=== PATIENT | male | born 1940 | race Two or more races ===

== ENCOUNTER → 2017-04-29 | Outpatient (CLI) | payer OTHER ==
[~2017-04-29] MED LIST: GLIM1TAB2; GLIP-115; HYDR-2598; LEVO50TA7; LORAZEPAM; METFORMIN 500MG TABLETS; NAPR500T31; QUIN20TA35; TIMO0.5S32; TRAV0.00
[2017-04-29 08:34] LABS: Basophils # (auto) 0 uL; Basophils % (auto) 0.5 % (0.0-2.0); Eosinophils # (auto) 0.4 uL; Eosinophils % (auto) 5.3 % (0.0-7.0); Hematocrit 46.9 % (41.0-53.0); Hemoglobin 15.7 g/dL (13.5-17.5); Lymphocytes # (auto) 2.3 uL; Lymphocytes % (auto) 29.8 % (10.0-50.0); Mean Corpuscular Hemoglobin 29.6 pg (28.0-32.0); Mean Corpuscular Hgb Conc. 33.4 g/dL (32.0-36.0); Mean Corpuscular Volume 88.7 fL (80.0-100.0); Monocytes # (auto) 0.5 uL; Monocytes % (auto) 7.1 % (0.0-12.0); Neutrophils # (auto) 4.3 uL; Neutrophils % (auto) 57.3 % (37.0-80.0); Nucleated Red Blood Cells % 0.1 %; Platelet Count (auto) 182 10^3/uL (140-450); Red Blood Cells 5.29 10^6/uL (4.5-5.90); Red Cell Distribution Width 12.7 % (11.8-14.3); White Blood Cell 7.6 10^3/uL (4.4-10.8)
[2017-04-29 08:46] LABS: Albumin 3.5 g/dL (3.4-5.0); BUN/Creatinine Ratio 23.9; Bilirubin, Total 0.9 mg/dL (0.2-1.0); Calcium 8.7 mg/dL (8.5-10.1); Potassium 3.8 mmol/L (3.5-5.1); Total Protein 8.5 g/dL (6.4-8.2)
[2017-04-29 08:53] LABS: Urine Bacteria NONE SEEN /hpf (None Seen); Urine Blood Negative /uL (Negative); Urine Specific Gravity 1.012 (1.001-1.035); Urine WBC <1 /hpf (0 - 3)
== END | disposition home or self-care (01) ==
LOC: LAB 07:48
PROVIDERS: ATTEND Family Medicine
DX: I10 Essential (primary) hypertension (principal); E11.42 Type 2 diabetes mellitus with diabetic polyneuropathy; E78.5 Hyperlipidemia, unspecified
CPT/HCPCS: 36415; 80053; 80061; 81001; 82043; 83036; 84443; 85025

== ENCOUNTER → 2017-10-30 | Outpatient (CLI) | payer OTHER ==
[2017-10-30 07:56] LABS: Basophils # (auto) 0 uL; Basophils % (auto) 0.5 % (0.0-2.0); Eosinophils # (auto) 0.4 uL; Eosinophils % (auto) 4.7 % (0.0-7.0); Hematocrit 45.9 % (41.0-53.0); Hemoglobin 15.4 g/dL (13.5-17.5); Lymphocytes # (auto) 2.8 uL; Lymphocytes % (auto) 33.8 % (10.0-50.0); Mean Corpuscular Hemoglobin 30.3 pg (28.0-32.0); Mean Corpuscular Hgb Conc. 33.6 g/dL (32.0-36.0); Mean Corpuscular Volume 90.3 fL (80.0-100.0); Monocytes # (auto) 0.5 uL; Monocytes % (auto) 6.1 % (0.0-12.0); Neutrophils # (auto) 4.5 uL; Neutrophils % (auto) 54.9 % (37.0-80.0); Nucleated Red Blood Cells % 0.1 %; Platelet Count (auto) 161 10^3/uL (140-450); Red Blood Cells 5.08 10^6/uL (4.5-5.90); Red Cell Distribution Width 13.4 % (11.8-14.3); White Blood Cell 8.3 10^3/uL (4.4-10.8)
[2017-10-30 08:00] LABS: Urine Bacteria NONE SEEN /hpf (None Seen); Urine Blood 1+ /uL (Negative); Urine Specific Gravity 1.019 (1.001-1.035); Urine WBC 1 /hpf (0 - 3)
[2017-10-30 08:40] LABS: BUN/Creatinine Ratio 17.5; Potassium 3.7 mmol/L (3.5-5.1)
[2017-10-30 08:41] LABS: Albumin 3.4 g/dL (3.4-5.0); Bilirubin, Total 1.4 mg/dL (0.2-1.0); Calcium 8.7 mg/dL (8.5-10.1)
== END | disposition home or self-care (01) ==
LOC: LAB 07:26
PROVIDERS: ATTEND Nurse Practitioner
DX: E78.5 Hyperlipidemia, unspecified (principal); E11.42 Type 2 diabetes mellitus with diabetic polyneuropathy; I10 Essential (primary) hypertension; Z79.899 Other long term (current) drug therapy
CPT/HCPCS: 36415; 80053; 80061; 81001; 82043; 82306; 83036; 84153; 84443; 85025

== ENCOUNTER → 2018-05-15 | Outpatient (CLI) | payer OTHER ==
[2018-05-15 08:12] LABS: Basophils # (auto) 0 uL; Basophils % (auto) 0.4 % (0.0-2.0); Eosinophils # (auto) 0.3 uL; Eosinophils % (auto) 4.7 % (0.0-7.0); Hematocrit 46.9 % (41.0-53.0); Hemoglobin 15.6 g/dL (13.5-17.5); Lymphocytes # (auto) 2.2 uL; Lymphocytes % (auto) 32.5 % (10.0-50.0); Mean Corpuscular Hemoglobin 29.7 pg (28.0-32.0); Mean Corpuscular Hgb Conc. 33.3 g/dL (32.0-36.0); Mean Corpuscular Volume 89.2 fL (80.0-100.0); Monocytes # (auto) 0.5 uL; Monocytes % (auto) 7.7 % (0.0-12.0); Neutrophils # (auto) 3.7 uL; Neutrophils % (auto) 54.7 % (37.0-80.0); Platelet Count (auto) 160 10^3/uL (140-450); Red Blood Cells 5.26 10^6/uL (4.5-5.90); Red Cell Distribution Width 13.7 % (11.8-14.3); White Blood Cell 6.8 10^3/uL (4.4-10.8)
[2018-05-15 08:59] LABS: Albumin 3.4 g/dL (3.4-5.0); Calcium 9.1 mg/dL (8.5-10.1); Potassium 4.1 mmol/L (3.5-5.1)
[2018-05-15 09:05] LABS: BUN/Creatinine Ratio 17.5; Bilirubin, Total 0.8 mg/dL (0.2-1.0); Total Protein 8.4 g/dL (6.4-8.2)
== END | disposition home or self-care (01) ==
LOC: LAB 07:33
PROVIDERS: ATTEND Nurse Practitioner
DX: E11.9 Type 2 diabetes mellitus without complications (principal); E78.49 Other hyperlipidemia
CPT/HCPCS: 36415; 80053; 80061; 83036; 84443; 85025

== ENCOUNTER → 2018-06-27 | Outpatient (CLI) | payer OTHER ==
[2018-06-27 08:39] LABS: Urine Bacteria NONE SEEN /hpf (None Seen); Urine Blood Negative /uL (Negative); Urine Specific Gravity 1.024 (1.001-1.035); Urine WBC 2 /hpf (0 - 3)
[2018-06-27 08:41] LABS: Basophils # (auto) 0 uL; Basophils % (auto) 0.6 % (0.0-2.0); Eosinophils # (auto) 0.4 uL; Eosinophils % (auto) 5.8 % (0.0-7.0); Hematocrit 44.8 % (41.0-53.0); Hemoglobin 14.9 g/dL (13.5-17.5); Lymphocytes % (auto) 30.5 % (10.0-50.0); Mean Corpuscular Hemoglobin 29.3 pg (28.0-32.0); Mean Corpuscular Hgb Conc. 33.3 g/dL (32.0-36.0); Mean Corpuscular Volume 88.1 fL (80.0-100.0); Monocytes # (auto) 0.5 uL; Monocytes % (auto) 7.3 % (0.0-12.0); Neutrophils # (auto) 3.6 uL; Neutrophils % (auto) 55.8 % (37.0-80.0); Platelet Count (auto) 169 10^3/uL (140-450); Red Blood Cells 5.09 10^6/uL (4.5-5.90); Red Cell Distribution Width 13.2 % (11.8-14.3); White Blood Cell 6.5 10^3/uL (4.4-10.8)
[2018-06-27 09:00] LABS: Albumin 3.5 g/dL (3.4-5.0); Calcium 8.7 mg/dL (8.5-10.1); Potassium 3.7 mmol/L (3.5-5.1)
[2018-06-27 09:06] LABS: BUN/Creatinine Ratio 19.6; Total Protein 8.2 g/dL (6.4-8.2)
== END | disposition home or self-care (01) ==
LOC: LAB 07:30
PROVIDERS: ATTEND Nurse Practitioner
DX: E11.9 Type 2 diabetes mellitus without complications (principal); E78.5 Hyperlipidemia, unspecified
CPT/HCPCS: 36415; 80053; 80061; 81001; 82043; 83036; 85025

== ENCOUNTER → 2018-11-24 | Outpatient (CLI) | payer OTHER, MEDICARE ==
[~2018-11-24] MED LIST changes: -GLIP-115; +GLIP5TAB12
[2018-11-24 08:05] LABS: Basophils # (auto) 0.1 uL; Basophils % (auto) 0.9 % (0.0-2.0); Eosinophils # (auto) 0.3 uL; Eosinophils % (auto) 4.5 % (0.0-7.0); Hematocrit 47.2 % (41.0-53.0); Hemoglobin 15.7 g/dL (13.5-17.5); Lymphocytes # (auto) 2.3 uL; Lymphocytes % (auto) 36.8 % (10.0-50.0); Mean Corpuscular Hemoglobin 29.7 pg (28.0-32.0); Mean Corpuscular Hgb Conc. 33.2 g/dL (32.0-36.0); Mean Corpuscular Volume 89.4 fL (80.0-100.0); Monocytes # (auto) 0.4 uL; Neutrophils # (auto) 3.3 uL; Neutrophils % (auto) 51.8 % (37.0-80.0); Nucleated Red Blood Cells % 0.1 %; Platelet Count (auto) 152 10^3/uL (140-450); Red Blood Cells 5.28 10^6/uL (4.5-5.90); Red Cell Distribution Width 13.7 % (11.8-14.3); White Blood Cell 6.3 10^3/uL (4.4-10.8)
[2018-11-24 08:19] LABS: Urine Bacteria NONE SEEN /hpf (None Seen); Urine Blood Negative /uL (Negative); Urine Specific Gravity 1.011 (1.001-1.035); Urine WBC <1 /hpf (0 - 3)
[2018-11-24 08:30] LABS: Albumin 3.5 g/dL (3.4-5.0); BUN/Creatinine Ratio 19.1
[2018-11-24 08:36] LABS: Bilirubin, Total 1.1 mg/dL (0.2-1.0); Total Protein 7.9 g/dL (6.4-8.2)
== END | disposition home or self-care (01) ==
LOC: LAB 07:19
PROVIDERS: ATTEND Nurse Practitioner
DX: E11.9 Type 2 diabetes mellitus without complications (principal); E78.5 Hyperlipidemia, unspecified
CPT/HCPCS: 36415; 80053; 80061; 81001; 82043; 83036; 85025

== ENCOUNTER → 2019-03-09 | Outpatient (CLI) | payer OTHER, MEDICARE ==
[~2019-03-09] MED LIST changes: -GLIM1TAB2; +GLIM1TAB3
[2019-03-09 09:25] LABS: Basophils # (auto) 0 uL; Basophils % (auto) 0.6 % (0.0-2.0); Eosinophils # (auto) 0.7 uL; Eosinophils % (auto) 10.8 % (0.0-7.0); Hematocrit 46.9 % (41.0-53.0); Hemoglobin 15.7 g/dL (13.5-17.5); Lymphocytes % (auto) 28.8 % (10.0-50.0); Mean Corpuscular Hgb Conc. 33.5 g/dL (32.0-36.0); Mean Corpuscular Volume 89.5 fL (80.0-100.0); Monocytes # (auto) 0.5 uL; Neutrophils # (auto) 3.5 uL; Neutrophils % (auto) 51.8 % (37.0-80.0); Platelet Count (auto) 141 10^3/uL (140-450); Red Blood Cells 5.24 10^6/uL (4.5-5.90); Red Cell Distribution Width 13.6 % (11.8-14.3); White Blood Cell 6.8 10^3/uL (4.4-10.8)
[2019-03-09 09:50] LABS: Urine Bacteria FEW /hpf (None Seen); Urine Blood Negative /uL (Negative); Urine Specific Gravity 1.012 (1.001-1.035); Urine WBC <1 /hpf (0 - 3)
[2019-03-09 10:05] LABS: Potassium 4.4 mmol/L (3.5-5.1)
[2019-03-09 10:15] LABS: Albumin 3.5 g/dL (3.4-5.0); BUN/Creatinine Ratio 17.3; Calcium 9.2 mg/dL (8.5-10.1); Total Protein 7.9 g/dL (6.4-8.2)
== END | disposition home or self-care (01) ==
LOC: LAB 08:22
PROVIDERS: ATTEND Nurse Practitioner
DX: E78.5 Hyperlipidemia, unspecified (principal); E11.9 Type 2 diabetes mellitus without complications
CPT/HCPCS: 36415; 80053; 80061; 81001; 82043; 83036; 84443; 85025

== ENCOUNTER → 2019-06-23 | Outpatient (CLI) | payer OTHER ==
[2019-06-23 08:57] LABS: Basophils # (auto) 0 10 ^3/uL (0-0.2); Basophils % (auto) 0.7 % (0.0-2.0); Eosinophils # (auto) 0.4 10 ^3/uL (0-0.8); Hematocrit 45.6 % (41.0-53.0); Hemoglobin 14.9 g/dL (13.5-17.5); Lymphocytes # (auto) 1.6 10 ^3/uL (0.4-5.4); Lymphocytes % (auto) 22.3 % (10.0-50.0); Mean Corpuscular Hemoglobin 29.3 pg (28.0-32.0); Mean Corpuscular Hgb Conc. 32.6 g/dL (32.0-36.0); Mean Corpuscular Volume 89.9 fL (80.0-100.0); Monocytes # (auto) 0.6 10 ^3/uL (0-1.3); Monocytes % (auto) 7.8 % (0.0-12.0); Neutrophils # (auto) 4.5 10 ^3/uL (1.6-8.6); Neutrophils % (auto) 64.2 % (37.0-80.0); Nucleated Red Blood Cells % 0.1 %; Platelet Count (auto) 137 10^3/uL (140-450); Red Blood Cells 5.07 10^6/uL (4.5-5.90); Red Cell Distribution Width 13.6 % (11.8-14.3); White Blood Cell 7.1 10^3/uL (4.4-10.8)
[2019-06-23 09:13] LABS: Albumin 3.4 g/dL (3.4-5.0); Calcium 8.7 mg/dL (8.5-10.1); Potassium 4.1 mmol/L (3.5-5.1)
[2019-06-23 09:19] LABS: BUN/Creatinine Ratio 19.6; Bilirubin, Total 1.2 mg/dL (0.2-1.0); Total Protein 7.9 g/dL (6.4-8.2)
== END | disposition home or self-care (01) ==
LOC: LAB 08:33
PROVIDERS: ATTEND Nurse Practitioner
DX: E78.5 Hyperlipidemia, unspecified (principal); E11.9 Type 2 diabetes mellitus without complications
CPT/HCPCS: 36415; 80053; 80061; 83036; 85025

== ENCOUNTER → 2019-12-23 | Outpatient (CLI) | payer OTHER ==
[~2019-12-23] MED LIST changes: +GLIM-5; -GLIM1TAB3
[2019-12-23 10:05] LABS: Albumin 3.7 g/dL (3.4-5.0); Calcium 8.8 mg/dL (8.5-10.1); Potassium 3.9 mmol/L (3.5-5.1)
[2019-12-23 10:13] LABS: BUN/Creatinine Ratio 19.8; Bilirubin, Total 1.1 mg/dL (0.2-1.0); Total Protein 7.6 g/dL (6.4-8.2)
[2019-12-23 10:21] LABS: Basophils # (auto) 0 10 ^3/uL (0-0.2); Basophils % (auto) 0.6 % (0.0-2.0); Eosinophils # (auto) 0.4 10 ^3/uL (0-0.8); Eosinophils % (auto) 6.6 % (0.0-7.0); Hematocrit 42.2 % (41.0-53.0); Hemoglobin 14.2 g/dL (13.5-17.5); Lymphocytes # (auto) 1.9 10 ^3/uL (0.4-5.4); Lymphocytes % (auto) 31.2 % (10.0-50.0); Mean Corpuscular Hemoglobin 29.7 pg (28.0-32.0); Mean Corpuscular Hgb Conc. 33.7 g/dL (32.0-36.0); Mean Corpuscular Volume 88.3 fL (80.0-100.0); Monocytes # (auto) 0.5 10 ^3/uL (0-1.3); Monocytes % (auto) 8.3 % (0.0-12.0); Neutrophils # (auto) 3.3 10 ^3/uL (1.6-8.6); Neutrophils % (auto) 53.3 % (37.0-80.0); Nucleated Red Blood Cells % 0.1 %; Platelet Count (auto) 160 10^3/uL (140-450); Red Blood Cells 4.77 10^6/uL (4.5-5.90); Red Cell Distribution Width 13.3 % (11.8-14.3); White Blood Cell 6.1 10^3/uL (4.4-10.8)
== END | disposition home or self-care (01) ==
LOC: LAB 09:16
PROVIDERS: ATTEND Student in an Organized Health Care Education/Training Program
DX: I10 Essential (primary) hypertension (principal); E11.42 Type 2 diabetes mellitus with diabetic polyneuropathy; E03.8 Other specified hypothyroidism; E78.5 Hyperlipidemia, unspecified
CPT/HCPCS: 36415; 80053; 80061; 82043; 83036; 84443; 85025

== ENCOUNTER 2020-03-16 09:20 | Inpatient (IN) | payer OTHER ==
[~2020-03-16] VITALS: Ht 165.1 cm; Wt 80.5 kg
[2020-03-16] MEDS: BUDESONIDE (INHALATION) 180 MCG IH IN SCH (06:34)
[2020-03-16 10:11] LABS: Basophils # (auto) 0 10 ^3/uL (0-0.2); Basophils % (auto) 0.1 % (0.0-2.0); Eosinophils # (auto) 0 10 ^3/uL (0-0.8); Eosinophils % (auto) 0.6 % (0.0-7.0); Hematocrit 45.5 % (41.0-53.0); Hemoglobin 15.5 g/dL (13.5-17.5); Lymphocytes % (auto) 14.7 % (10.0-50.0); Mean Corpuscular Hemoglobin 30.3 pg (28.0-32.0); Mean Corpuscular Hgb Conc. 34.1 g/dL (32.0-36.0); Mean Corpuscular Volume 88.9 fL (80.0-100.0); Monocytes # (auto) 0.5 10 ^3/uL (0-1.3); Monocytes % (auto) 7.5 % (0.0-12.0); Neutrophils # (auto) 5.5 10 ^3/uL (1.6-8.6); Neutrophils % (auto) 77.1 % (37.0-80.0); Nucleated Red Blood Cells % 0.1 %; Platelet Count (auto) 135 10^3/uL (140-450); Red Blood Cells 5.12 10^6/uL (4.5-5.90); Red Cell Distribution Width 13.1 % (11.8-14.3); White Blood Cell 7.2 10^3/uL (4.4-10.8)
[2020-03-16] MEDS ORDERED: DexAMETHasone SOD PHOS 10MG/1ML VIAL INJ IV ONE (10:30)
[2020-03-16] MEDS ORDERED: DOXYCYCLINE 100MG/250ML 250 ML IV ONE (10:30)
[2020-03-16 10:31] LABS: Albumin 2.8 g/dL (3.4-5.0); Anion Gap 6 (5-15); Blood Urea Nitrogen 17 mg/dL (7-18); Calcium 8.4 mg/dL (8.5-10.1); Carbon Dioxide 24 mmol/L (21-32); Chloride 103 mmol/L (98-107); Glucose 193 mg/dL (74-106); Potassium 3.6 mmol/L (3.5-5.1); Sodium 133 mmol/L (136-145)
[2020-03-16 10:35] LABS: INR 1.04 (0.9-1.15); Partial Thromboplastin Time 29.2 sec (23.0-31.2)
[2020-03-16 10:38] LABS: Alanine Aminotransferase 42 U/L (16-61); Alkaline Phosphatase 86 U/L (45-117); Aspartate Aminotransferase 47 U/L (15-37); BUN/Creatinine Ratio 13.6; Bilirubin, Total 1.1 mg/dL (0.2-1.0); GFR African American 72 mL/min; GFR Non-African American 59 mL/min; Total Protein 8.1 g/dL (6.4-8.2)
[2020-03-16 10:58] LABS: Lactic Acid w/Reflex 2.9 mmol/L (0.4-2.0)
[2020-03-16 13:09] LABS: Urine Bacteria NONE SEEN /hpf (None Seen); Urine Blood Negative /uL (Negative); Urine Mucus FEW (None Seen); Urine Specific Gravity 1.014 (1.001-1.035); Urine WBC 6 /hpf (0 - 3)
[2020-03-16] MEDS ORDERED: NITROGLYCERIN 0.4 MG SL TAB SL PRN (14:30)
[2020-03-16] MEDS ORDERED: MORPHINE SULF INJ 2 MG/ML SYRINGE 1ML IV PRN (14:30)
[2020-03-16] MEDS ORDERED: ACETAMINOPHEN 500 MG TAB PO PRN (14:30)
[2020-03-16] MEDS ORDERED: HYDROcodone-ACET 5/325MG TAB PO PRN (14:30)
[2020-03-16] MEDS ORDERED: REMDESIVIR PER PHARMACY 0 ML IV SCH (14:30)
[2020-03-16] MEDS ORDERED: DEXTROSE (50%) 50ML SYRG IV PRN (14:30)
[2020-03-16] MEDS ORDERED: LEVO112T4 PO (16:59)
[2020-03-16] MEDS ORDERED: METF-371 PO (16:59)
[2020-03-16] MEDS ORDERED: AML5T PO (17:00)
[2020-03-16] MEDS ORDERED: REMDESIVIR 200 MG in NS 210ml LOADING DOSE ADULT IV ONE (17:00)
[2020-03-16] MEDS ORDERED: SIMV10TA84 PO (17:00)
[2020-03-16] MEDS ORDERED: LISI-646 PO (17:00)
[2020-03-16] MEDS ORDERED: SITA25TA3 PO (17:00)
[2020-03-16] MEDS ORDERED: DICL50TA4 PO (17:01)
[2020-03-16] MEDS ORDERED: GABA100C9 PO (17:01)
[2020-03-16] MEDS: ACCU-CHEK COMFORT CURVE STRIP VI SCH (17:48)
[2020-03-16] MEDS: InsuLIN REG 1unit/0.01ml Soln (100units/ml) SC SCH (17:50)
[2020-03-16 17:58] LABS: CRP High Sensitivity 14.8 mg/dL (< 0.3)
[2020-03-16] MEDS: ENOXAPARIN SOD 40 MG/0.4 ML SYRINGE SC SCH (22:00)
[2020-03-16 23:24] VITALS: BP 139/77
[2020-03-17] MEDS: ACCU-CHEK COMFORT CURVE STRIP VI SCH ×5 (00:16→22:19)
[2020-03-17] MEDS: InsuLIN REG 1unit/0.01ml Soln (100units/ml) SC SCH ×5 (00:17→22:25)
[2020-03-17 06:45] LABS: Basophils # (auto) 0 10 ^3/uL (0-0.2); Basophils % (auto) 0.1 % (0.0-2.0); Eosinophils # (auto) 0 10 ^3/uL (0-0.8); Hematocrit 44.5 % (41.0-53.0); Hemoglobin 15.4 g/dL (13.5-17.5); Lymphocytes # (auto) 0.6 10 ^3/uL (0.4-5.4); Lymphocytes % (auto) 7.6 % (10.0-50.0); Mean Corpuscular Hemoglobin 30.7 pg (28.0-32.0); Mean Corpuscular Hgb Conc. 34.6 g/dL (32.0-36.0); Mean Corpuscular Volume 88.9 fL (80.0-100.0); Monocytes # (auto) 0.6 10 ^3/uL (0-1.3); Monocytes % (auto) 7.4 % (0.0-12.0); Neutrophils # (auto) 6.9 10 ^3/uL (1.6-8.6); Neutrophils % (auto) 84.9 % (37.0-80.0); Nucleated Red Blood Cells % 0.1 %; Platelet Count (auto) 140 10^3/uL (140-450); Red Blood Cells 5.01 10^6/uL (4.5-5.90); Red Cell Distribution Width 13.2 % (11.8-14.3); White Blood Cell 8.1 10^3/uL (4.4-10.8)
[2020-03-17 08:00] VITALS: BP 136/68
[2020-03-17] MEDS: cefTRIAXone 1GM/50ML D5W 50 ML IV SCH (08:49)
[2020-03-17] MEDS: FAMOTIDINE 20 MG TAB PO SCH (08:50)
[2020-03-17] MEDS: ZINC SULFATE 220mg CAP or TAB PO SCH (08:50)
[2020-03-17] MEDS: CHOLECALCIFEROL (VITD3) 2,000 UNIT CAP PO SCH (08:50)
[2020-03-17] MEDS: ASCORBIC ACID 1,000 MG TAB PO SCH (08:50)
[2020-03-17] MEDS: ENOXAPARIN SOD 40 MG/0.4 ML SYRINGE SC SCH ×2 (08:51→21:15)
[2020-03-17] MEDS: BUDESONIDE (INHALATION) 180 MCG IH IN SCH ×2 (09:17→22:07)
[2020-03-17] MEDS ORDERED: AZITHROMYCIN 500MG/ 250ML 250 ML IV SCH (10:00)
[2020-03-17] MEDS ORDERED: FUROSEMIDE 40 MG/4 ML VIAL IV ONE (10:30)
[2020-03-17] MEDS: AZITHROMYCIN 500MG/ 250ML 250 ML IV SCH (10:35)
[2020-03-17 13:13] LABS: Albumin 2.5 g/dL (3.4-5.0); Calcium 8.4 mg/dL (8.5-10.1); Potassium 3.7 mmol/L (3.5-5.1)
[2020-03-17 13:18] LABS: BUN/Creatinine Ratio 19.6; Bilirubin, Total 0.8 mg/dL (0.2-1.0); Total Protein 7.8 g/dL (6.4-8.2)
[2020-03-17] MEDS: LORazepam 2MG/ML-1ML VIAL IV PRN ×2 (14:00→21:16)
[2020-03-17] MEDS: REMDESIVIR 100mg 100 MG in SODIUM CHL 0.9% 230 ML IV SCH (15:00)
[2020-03-17 16:00] VITALS: BP 112/75
[2020-03-18] VITALS: BP 133/73
[2020-03-18] MEDS: diphenhdrAMINE HCL 50 MG/1 ML VL IV PRN (00:17)
[2020-03-18] MEDS: MORPHINE SULF INJ 2 MG/ML SYRINGE 1ML IV PRN (00:48)
[2020-03-18] MEDS: LORazepam 2MG/ML-1ML VIAL IV PRN (03:00)
[2020-03-18 03:31] VITALS: BP 132/70
[2020-03-18 04:00] VITALS: BP 123/99
[2020-03-18 05:25] VITALS: BP 131/83
[2020-03-18] MEDS: BUDESONIDE (INHALATION) 180 MCG IH IN SCH ×3 (06:00→22:00)
[2020-03-18] MEDS: InsuLIN REG 1unit/0.01ml Soln (100units/ml) SC SCH ×4 (06:17→21:34)
[2020-03-18] MEDS: ACCU-CHEK COMFORT CURVE STRIP VI SCH ×4 (06:17→21:33)
[2020-03-18 08:00] VITALS: BP 147/83
[2020-03-18 08:05] LABS: Albumin 2.5 g/dL (3.4-5.0); Calcium 8.5 mg/dL (8.5-10.1); Potassium 3.4 mmol/L (3.5-5.1)
[2020-03-18 08:10] LABS: BUN/Creatinine Ratio 21.9; Bilirubin, Total 1.1 mg/dL (0.2-1.0); Total Protein 7.5 g/dL (6.4-8.2)
[2020-03-18] MEDS: ZINC SULFATE 220mg CAP or TAB PO SCH (10:00)
[2020-03-18] MEDS: CHOLECALCIFEROL (VITD3) 2,000 UNIT CAP PO SCH (10:00)
[2020-03-18] MEDS: ASCORBIC ACID 1,000 MG TAB PO SCH (10:00)
[2020-03-18] MEDS: FAMOTIDINE 20 MG TAB PO SCH (10:00)
[2020-03-18] MEDS: cefTRIAXone 1GM/50ML D5W 50 ML IV SCH (10:50)
[2020-03-18] MEDS: FUROSEMIDE 40 MG/4 ML VIAL IV SCH (10:50)
[2020-03-18] MEDS: ENOXAPARIN SOD 40 MG/0.4 ML SYRINGE SC SCH ×2 (10:59→21:33)
[2020-03-18] MEDS: AZITHROMYCIN 500MG/ 250ML 250 ML IV SCH (13:20)
[2020-03-18] MEDS ORDERED: POTASSIUM CHLORIDE 20 MEQ, LIDOCAINE 1% (LOCAL ANESTH.) 2 ML in SODIUM CHL 0.9% 100 ML IV ONE (15:15)
[2020-03-18 16:00] VITALS: BP 130/75
[2020-03-18] MEDS: ALBUTEROL SULF HFA 90MCG INH 200DOSE IN PRN (19:22)
[2020-03-18] MEDS: REMDESIVIR 100mg 100 MG in SODIUM CHL 0.9% 230 ML IV SCH (21:33)
[2020-03-19] VITALS: BP 119/72
[2020-03-19] MEDS: MORPHINE SULF INJ 2 MG/ML SYRINGE 1ML IV PRN ×3 (04:00→13:33)
[2020-03-19] MEDS: BUDESONIDE (INHALATION) 180 MCG IH IN SCH ×2 (06:55→19:15)
[2020-03-19 07:03] LABS: Albumin 2.5 g/dL (3.4-5.0); Calcium 8.4 mg/dL (8.5-10.1); Potassium 3.5 mmol/L (3.5-5.1)
[2020-03-19] MEDS: ACCU-CHEK COMFORT CURVE STRIP VI SCH ×4 (07:06→22:31)
[2020-03-19 07:07] LABS: BUN/Creatinine Ratio 29.7; Bilirubin, Total 1.4 mg/dL (0.2-1.0); Total Protein 7.4 g/dL (6.4-8.2)
[2020-03-19] MEDS: InsuLIN REG 1unit/0.01ml Soln (100units/ml) SC SCH ×4 (07:08→22:35)
[2020-03-19 08:00] VITALS: BP 129/76
[2020-03-19] MEDS: cefTRIAXone 1GM/50ML D5W 50 ML IV SCH (08:51)
[2020-03-19] MEDS: ENOXAPARIN SOD 40 MG/0.4 ML SYRINGE SC SCH ×2 (09:27→22:31)
[2020-03-19] MEDS: FUROSEMIDE 40 MG/4 ML VIAL IV SCH (09:27)
[2020-03-19] MEDS: ZINC SULFATE 220mg CAP or TAB PO SCH (10:00)
[2020-03-19] MEDS: FAMOTIDINE 20 MG TAB PO SCH (10:00)
[2020-03-19] MEDS: CHOLECALCIFEROL (VITD3) 2,000 UNIT CAP PO SCH (10:00)
[2020-03-19] MEDS: ASCORBIC ACID 1,000 MG TAB PO SCH (10:00)
[2020-03-19] MEDS: AZITHROMYCIN 500MG/ 250ML 250 ML IV SCH (10:29)
[2020-03-19] MEDS: REMDESIVIR 100mg 100 MG in SODIUM CHL 0.9% 230 ML IV SCH (15:24)
[2020-03-19 16:00] VITALS: BP 122/68
[2020-03-20] VITALS: BP 142/83
[2020-03-20 06:38] LABS: Basophils # (auto) 0 10 ^3/uL (0-0.2); Basophils % (auto) 0.1 % (0.0-2.0); Eosinophils # (auto) 0.1 10 ^3/uL (0-0.8); Eosinophils % (auto) 0.8 % (0.0-7.0); Hematocrit 46.5 % (41.0-53.0); Hemoglobin 15.5 g/dL (13.5-17.5); Lymphocytes # (auto) 0.6 10 ^3/uL (0.4-5.4); Lymphocytes % (auto) 5.3 % (10.0-50.0); Mean Corpuscular Hemoglobin 30.2 pg (28.0-32.0); Mean Corpuscular Hgb Conc. 33.3 g/dL (32.0-36.0); Mean Corpuscular Volume 90.7 fL (80.0-100.0); Monocytes # (auto) 0.5 10 ^3/uL (0-1.3); Monocytes % (auto) 4.8 % (0.0-12.0); Nucleated Red Blood Cells % 0.1 %; Platelet Count (auto) 168 10^3/uL (140-450); Red Blood Cells 5.13 10^6/uL (4.5-5.90); Red Cell Distribution Width 13.5 % (11.8-14.3); White Blood Cell 11.3 10^3/uL (4.4-10.8)
[2020-03-20] MEDS: ACCU-CHEK COMFORT CURVE STRIP VI SCH ×4 (06:48→22:15)
[2020-03-20] MEDS: InsuLIN REG 1unit/0.01ml Soln (100units/ml) SC SCH ×4 (06:53→22:15)
[2020-03-20 06:59] LABS: Potassium 3.6 mmol/L (3.5-5.1)
[2020-03-20 07:07] LABS: Albumin 2.4 g/dL (3.4-5.0); BUN/Creatinine Ratio 38.5; Bilirubin, Total 1.3 mg/dL (0.2-1.0); Calcium 8.5 mg/dL (8.5-10.1); Total Protein 7.5 g/dL (6.4-8.2)
[2020-03-20 08:00] VITALS: BP 130/73
[2020-03-20] MEDS: MORPHINE SULF INJ 2 MG/ML SYRINGE 1ML IV PRN ×2 (08:50→16:05)
[2020-03-20] MEDS: cefTRIAXone 1GM/50ML D5W 50 ML IV SCH (08:50)
[2020-03-20] MEDS: ZINC SULFATE 220mg CAP or TAB PO SCH (10:00)
[2020-03-20] MEDS: ASCORBIC ACID 1,000 MG TAB PO SCH (10:00)
[2020-03-20] MEDS: CHOLECALCIFEROL (VITD3) 2,000 UNIT CAP PO SCH (10:00)
[2020-03-20] MEDS: FAMOTIDINE 20 MG TAB PO SCH (10:00)
[2020-03-20] MEDS: BUDESONIDE (INHALATION) 180 MCG IH IN SCH ×2 (10:00→19:03)
[2020-03-20] MEDS: AZITHROMYCIN 500MG/ 250ML 250 ML IV SCH (10:43)
[2020-03-20] MEDS: ENOXAPARIN SOD 40 MG/0.4 ML SYRINGE SC SCH ×2 (10:44→22:15)
[2020-03-20] MEDS: REMDESIVIR 100mg 100 MG in SODIUM CHL 0.9% 230 ML IV SCH (14:32)
[2020-03-20 16:00] VITALS: BP 135/80
[2020-03-21] VITALS: BP 136/76
[2020-03-21] MEDS: InsuLIN REG 1unit/0.01ml Soln (100units/ml) SC SCH ×4 (06:42→22:39)
[2020-03-21] MEDS: ACCU-CHEK COMFORT CURVE STRIP VI SCH ×4 (06:43→22:00)
[2020-03-21] MEDS: BUDESONIDE (INHALATION) 180 MCG IH IN SCH ×2 (07:25→18:52)
[2020-03-21 08:00] VITALS: BP 125/74
[2020-03-21] MEDS: ZINC SULFATE 220mg CAP or TAB PO SCH (10:00)
[2020-03-21] MEDS: FAMOTIDINE 20 MG TAB PO SCH (10:00)
[2020-03-21] MEDS: ASCORBIC ACID 1,000 MG TAB PO SCH (10:00)
[2020-03-21] MEDS: CHOLECALCIFEROL (VITD3) 2,000 UNIT CAP PO SCH (10:00)
[2020-03-21] MEDS: cefTRIAXone 1GM/50ML D5W 50 ML IV SCH (10:54)
[2020-03-21] MEDS: AZITHROMYCIN 500MG/ 250ML 250 ML IV SCH (10:54)
[2020-03-21] MEDS: ENOXAPARIN SOD 40 MG/0.4 ML SYRINGE SC SCH ×2 (10:55→22:44)
[2020-03-21 16:00] VITALS: BP 142/78
[2020-03-21] MEDS: SOD CHL 0.45% 1,000 ML IV SCH (18:52)
[2020-03-22] VITALS: BP_SYST 111; BP_SYST 131; BP_DIAS 67; BP_DIAS 84
[2020-03-22] MEDS: MORPHINE SULF INJ 2 MG/ML SYRINGE 1ML IV PRN ×2 (00:09→20:55)
[2020-03-22 06:07] LABS: Alanine Aminotransferase 27 U/L (16-61); Albumin 2.2 g/dL (3.4-5.0); Anion Gap 8 (5-15); Aspartate Aminotransferase 19 U/L (15-37); BUN/Creatinine Ratio 42.9; Blood Urea Nitrogen 51 mg/dL (7-18); Calcium 8.9 mg/dL (8.5-10.1); Carbon Dioxide 24 mmol/L (21-32); Chloride 118 mmol/L (98-107); GFR African American 76 mL/min; GFR Non-African American 63 mL/min; Glucose 182 mg/dL (74-106); Potassium 3.7 mmol/L (3.5-5.1); Sodium 150 mmol/L (136-145)
[2020-03-22 06:10] LABS: Alkaline Phosphatase 87 U/L (45-117); Bilirubin, Total 1.1 mg/dL (0.2-1.0); Total Protein 7.2 g/dL (6.4-8.2)
[2020-03-22] MEDS: InsuLIN REG 1unit/0.01ml Soln (100units/ml) SC SCH ×4 (06:26→21:02)
[2020-03-22] MEDS: ACCU-CHEK COMFORT CURVE STRIP VI SCH ×4 (06:27→20:50)
[2020-03-22] MEDS: ALBUTEROL SULF HFA 90MCG INH 200DOSE IN PRN (07:52)
[2020-03-22] MEDS: BUDESONIDE (INHALATION) 180 MCG IH IN SCH ×2 (07:52→21:27)
[2020-03-22 08:00] VITALS: BP 131/79
[2020-03-22] MEDS: ZINC SULFATE 220mg CAP or TAB PO SCH (08:54)
[2020-03-22] MEDS: cefTRIAXone 1GM/50ML D5W 50 ML IV SCH (08:54)
[2020-03-22] MEDS: ENOXAPARIN SOD 40 MG/0.4 ML SYRINGE SC SCH ×2 (08:55→21:09)
[2020-03-22] MEDS: ASCORBIC ACID 1,000 MG TAB PO SCH (08:55)
[2020-03-22] MEDS: FAMOTIDINE 20 MG TAB PO SCH (08:55)
[2020-03-22] MEDS: CHOLECALCIFEROL (VITD3) 2,000 UNIT CAP PO SCH (08:55)
[2020-03-22] MEDS: SOD CHL 0.45% 1,000 ML IV SCH (08:56)
[2020-03-22] MEDS: AZITHROMYCIN 250 MG TAB PO SCH (09:48)
[2020-03-22] MEDS: LORazepam 2MG/ML-1ML VIAL IV PRN ×3 (09:48→21:07)
[2020-03-22] MEDS: D5W 5% 1,000 ML IV SCH ×2 (11:03→20:49)
[2020-03-22 15:30] VITALS: BP 118/76
[2020-03-22 16:00] VITALS: BP 112/67
[2020-03-22] MEDS: diphenhdrAMINE HCL 50 MG/1 ML VL IV PRN (20:51)
[2020-03-22 23:00] VITALS: BP 116/76
[2020-03-22 23:31] VITALS: BP 111/67
[2020-03-23] MEDS: diphenhdrAMINE HCL 50 MG/1 ML VL IV PRN (05:28)
[2020-03-23] MEDS: MORPHINE SULF INJ 2 MG/ML SYRINGE 1ML IV PRN (05:29)
[2020-03-23] MEDS: LORazepam 2MG/ML-1ML VIAL IV PRN (05:48)
[2020-03-23] MEDS: D5W 5% 1,000 ML IV SCH ×2 (06:17→17:34)
[2020-03-23] MEDS: BUDESONIDE (INHALATION) 180 MCG IH IN SCH ×2 (06:26→19:52)
[2020-03-23] MEDS: InsuLIN REG 1unit/0.01ml Soln (100units/ml) SC SCH ×4 (07:28→21:43)
[2020-03-23] MEDS: ACCU-CHEK COMFORT CURVE STRIP VI SCH ×4 (07:28→21:45)
[2020-03-23 07:40] VITALS: BP 123/68
[2020-03-23] MEDS: cefTRIAXone 1GM/50ML D5W 50 ML IV SCH (09:15)
[2020-03-23] MEDS: ENOXAPARIN SOD 40 MG/0.4 ML SYRINGE SC SCH ×2 (09:29→21:45)
[2020-03-23] MEDS: ZINC SULFATE 220mg CAP or TAB PO SCH (10:00)
[2020-03-23] MEDS: CHOLECALCIFEROL (VITD3) 2,000 UNIT CAP PO SCH (10:00)
[2020-03-23] MEDS: FAMOTIDINE 20 MG TAB PO SCH (10:00)
[2020-03-23] MEDS: AZITHROMYCIN 250 MG TAB PO SCH (10:00)
[2020-03-23] MEDS: ASCORBIC ACID 1,000 MG TAB PO SCH (10:00)
[2020-03-23 15:38] VITALS: BP 121/74
[2020-03-23] MEDS: ALBUTEROL SULF HFA 90MCG INH 200DOSE IN PRN (19:52)
[2020-03-24] VITALS: BP 128/76
[2020-03-24] MEDS: D5W 5% 1,000 ML IV SCH (04:34)
[2020-03-24] MEDS: ACCU-CHEK COMFORT CURVE STRIP VI SCH ×2 (06:07→11:56)
[2020-03-24] MEDS: InsuLIN REG 1unit/0.01ml Soln (100units/ml) SC SCH ×2 (06:20→12:16)
[2020-03-24] MEDS: BUDESONIDE (INHALATION) 180 MCG IH IN SCH (07:25)
[2020-03-24 08:00] VITALS: BP 121/77
[2020-03-24] MEDS: MORPHINE SULF INJ 2 MG/ML SYRINGE 1ML IV PRN (08:04)
[2020-03-24] MEDS: cefTRIAXone 1GM/50ML D5W 50 ML IV SCH (09:08)
[2020-03-24] MEDS: CHOLECALCIFEROL (VITD3) 2,000 UNIT CAP PO SCH (10:00)
[2020-03-24] MEDS: ZINC SULFATE 220mg CAP or TAB PO SCH (10:00)
[2020-03-24] MEDS: AZITHROMYCIN 250 MG TAB PO SCH (10:00)
[2020-03-24] MEDS: ASCORBIC ACID 1,000 MG TAB PO SCH (10:00)
[2020-03-24] MEDS: FAMOTIDINE 20 MG TAB PO SCH (10:00)
[2020-03-24] MEDS: ENOXAPARIN SOD 40 MG/0.4 ML SYRINGE SC SCH (10:29)
[2020-03-24] MEDS: ALBUTEROL SULF HFA 90MCG INH 200DOSE IN PRN (11:06)
[2020-03-24 16:00] VITALS: BP 128/79
[2020-03-24] MEDS ORDERED: D5W 5% 1,000 ML IV SCH (16:15)
[2020-03-24] MEDS: LORazepam 2MG/ML-1ML VIAL IV PRN (16:36)
[2020-03-25] MEDS: MORPHINE SULF INJ 2 MG/ML SYRINGE 1ML IV PRN (04:39)
[2020-03-25 08:00] VITALS: BP 109/75
[2020-03-25 15:59] VITALS: BP 125/75
[2020-03-25] MEDS: LORazepam 2MG/ML-1ML VIAL IV PRN (21:45)
[2020-03-25 22:23] VITALS: BP 103/66
[2020-03-25 22:25] VITALS: BP 103/66
[2020-03-26] MEDS: MORPHINE SULF INJ 2 MG/ML SYRINGE 1ML IV PRN (00:04)
== END 2020-03-26 00:20 | disposition hospice, inpatient (51) | DRG 177 ==
LOC: ER 09:20 → TELE 09:21 → TELE-WESTW 23:20
PROVIDERS: ADMIT Nurse Practitioner Acute Care; ATTEND Internal Medicine
PROC: XW033E5 Introduction of Remdesivir Anti-infective into Peripheral Vein, Percutaneous Approach, New Technology Group 5 (ICD-10-PCS; 2020-03-17)
PROC: XW13325 Transfusion of Convalescent Plasma (Nonautologous) into Peripheral Vein, Percutaneous Approach, New Technology Group 5 (ICD-10-PCS; principal; 2020-03-18)
PROC: 5A09357 Assistance with Respiratory Ventilation, Less than 24 Consecutive Hours, Continuous Positive Airway Pressure (ICD-10-PCS; 2020-03-18)
PROC: 5A09357 Assistance with Respiratory Ventilation, Less than 24 Consecutive Hours, Continuous Positive Airway Pressure (ICD-10-PCS; 2020-03-19)
PROC: 5A09357 Assistance with Respiratory Ventilation, Less than 24 Consecutive Hours, Continuous Positive Airway Pressure (ICD-10-PCS; 2020-03-20)
PROC: 5A09357 Assistance with Respiratory Ventilation, Less than 24 Consecutive Hours, Continuous Positive Airway Pressure (ICD-10-PCS; 2020-03-21)
PROC: 5A09357 Assistance with Respiratory Ventilation, Less than 24 Consecutive Hours, Continuous Positive Airway Pressure (ICD-10-PCS; 2020-03-22)
PROC: 5A09357 Assistance with Respiratory Ventilation, Less than 24 Consecutive Hours, Continuous Positive Airway Pressure (ICD-10-PCS; 2020-03-23)
PROC: 5A09357 Assistance with Respiratory Ventilation, Less than 24 Consecutive Hours, Continuous Positive Airway Pressure (ICD-10-PCS; 2020-03-24)
PROC: 5A09357 Assistance with Respiratory Ventilation, Less than 24 Consecutive Hours, Continuous Positive Airway Pressure (ICD-10-PCS; 2020-03-25)
DX: U07.1 COVID-19 (principal); J12.82 Pneumonia due to coronavirus disease 2019; J96.01 Acute respiratory failure with hypoxia; E43 Unspecified severe protein-calorie malnutrition; D68.59 Other primary thrombophilia; Z51.5 Encounter for palliative care; Z66 Do not resuscitate; I10 Essential (primary) hypertension; E03.9 Hypothyroidism, unspecified; D89.839 Cytokine release syndrome, grade unspecified; E78.5 Hyperlipidemia, unspecified; M19.90 Unspecified osteoarthritis, unspecified site; E11.9 Type 2 diabetes mellitus without complications; Z79.84 Long term (current) use of oral hypoglycemic drugs
CPT/HCPCS: 36415; 36430; 36600; 71045; 80053; 81001; 82728; 82805; 82962; 83036; 83605; 83615; 83735; 83880; 84484; 85025; 85379; 85610; 85730; 86141; 86850; 86900; 86901; 87040; 87086; 87426; 87804; 93005; 94640; 94660; 96365; 96367; 96375; 99291; G0378; J0696; J1100; J1815; J2001; J3490; J7042